=== PATIENT | female | born 1975 | race Caucasian/White ===

== ENCOUNTER 2022-12-24 17:31 | Emergency (ER) | payer BC, OTHER, SELFPAY ==
[2022-12-24] VITALS (23 sets, daily range): BP systolic 156–175; BP diastolic 97–122; PULSE 84–116; RESP 11–33; TEMP 36.4; O2SAT 95–100; BMI 32.9
--- NOTE | 2022-12-24 17:36 | ECG_ITS ---
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
--- NOTE | 2022-12-24 17:50 | ED_ITS ---
HPI - Nausea/Vomiting/Diarrhea General Chief complaint: Nausea/Vomiting/Diarrhea Stated complaint: NAUSEA/VOMITING Time Seen by Provider: 12/24/22 17:46 Mode of arrival: ambulance Limitations: no limitations History of Present Illness HPI Narrative: 47 year old female presents to the ED for N/V, mid upper abd pain. Onset was 1-2 days ago. Denies fever, chills, diarrhea, urinary sx. Denies CP, SOB, cough, sore throat. Denies injury. Rates her pain 9/10 at this time. She does use marijuana on occasion; last use was 2 days ago. MD elicited complaint: Reports nausea, vomiting and abdominal pain Related Data Home Medications Medication Instructions Recorded Confirmed bupropion HCl 300 mg 24 hr tablet, 300 mg PO DAILY 12/24/22 12/24/22 extended release nitrofurantoin 12/24/22 monohydrate/macrocrystals 100 mg capsule Previous Rx's Medication Instructions Recorded ondansetron 4 mg disintegrating 4 mg translingual Q8H PRN nausea 12/24/22 tablet and vomiting 4 days #12 tabs promethazine 25 mg tablet 25 mg PO TID PRN nausea and 12/24/22 vomiting #9 tabs Allergies Allergy/AdvReac Type Severity Reaction Status Date / Time metronidazole [From Flagyl] AdvReac Intermediate Verified 12/24/22 17:44 sulfamethoxazole AdvReac Intermediate Verified 12/24/22 17:44 [From Bactrim] trimethoprim [From Bactrim] AdvReac Intermediate Verified 12/24/22 17:44 Review of Systems ROS Constitutional Denies: fever or chills Ears, nose, mouth, and throat Denies: throat pain Cardiovascular Denies: chest pain Respiratory Denies: shortness of breath or cough Gastrointestinal Reports: abdominal pain, nausea and vomiting; Denies: diarrhea or constipation Genitourinary Denies: painful urination, urinary frequency or urinary urgency Musculoskeletal Denies: back pain or neck pain Integumentary/Breast Denies: rash Neurological Denies: headache PFSH PFSH Social History Smoking status: Never smoker Exam Constitutional Vital Signs, click to edit/add: Last Vital Signs Temp 97.5 F L 12/24/22 17:35 Pulse 105 H 12/24/22 20:40 Resp 21 12/24/22 20:40 BP 156/97 H 12/24/22 20:30 Pulse Ox 98 12/24/22 19:50 Common normals: oriented x3 General appearance: cooperative, ill appearing and diaphoretic HENMT Common normals: normocephalic Nose: external nose normal Mouth: lip normal and moist mucous membranes abnormal (Dry) Eye Common normals: conjunctivae normal and no scleral icterus Neck & C-Spine Common normals: supple Chest Chest: symmetrical chest wall rise Respiratory Common normals: normal respiratory effort Effort & inspection: able to speak in complete sentences, symmetric chest movement and tachypneic Cardio Common normals: regular rhythm Rate: tachycardic GI Common normals: soft to palpation Inspection: normal to inspection Palpation: tender Details: epigastric; no guarding and not rigid Back & Pelvis Common normals: thoracic and lumbar spine normal to inspection Neuro Common normals: oriented x3 Sensorium/orientation: awake and alert Course Vital Signs Vital signs: Vital Signs Blood Pressure 162/108 H 12/24/22 17:33 Temperature 97.5 F L 12/24/22 17:35 Pulse Rate 105 H 12/24/22 20:40 Respiratory Rate 21 12/24/22 20:40 Blood Pressure 156/97 H 12/24/22 20:30 Pulse Oximetry 98 12/24/22 19:50 MDM - Nausea/Vomiting/Diarrhea MDM Narrative Medical decision making narrative: WBC count was 11.1. Additional laboratory studies were unremarkable. CT scan was negative for acute findings; see below for additional findings. She did see her pcp earlier today. She was diagnosed with a UTI at her pcp office. Per the patient she was given a prescription for Macrobid which she was not able to pickup from the pharmacy. She was given medication here with improvement. Follow up with pcp for a recheck, further evaluation and treatment. Differential Diagnosis Differential diagnosis: Likely gastroenteritis and dehydration Medical Records Attestation: I reviewed the patient's medical records. Lab Data Attestation: I reviewed the patient's lab results. Labs: Lab Results 12/24/22 12/24/22 Range/Units 18:04 19:20 WBC 11.1 H (4.0-11.0) 10^3/uL RBC 4.57 (4.20-5.40) 10^6/uL Hgb 13.9 (12.0-16.0) g/dL Hct 40.4 (36.0-48.0) % MCV 88.4 (81.0-99.0) fL MCH 30.4 (26.7-34.0) pg MCHC 34.4 (29.9-35.2) g/dL RDW 12.4 (11.0-15.0) % Plt Count 447 (150-450) 10^3/uL MPV 9.0 L (9.5-13.5) fL Neut % (Auto) 84.4 H (43.0-75.0) % Lymph % (Auto) 10.9 L (20.5-60.0) % [place] % (Auto) 3.8 (1.7-12.0) % Eos % (Auto) 0.2 L (0.9-7.0) % Baso % (Auto) 0.4 (0.2-2.0) % Neut # (Auto) 9.4 H (1.4-6.5) 10^3/uL Lymph # (Auto) 1.2 (1.2-3.8) 10^3/uL [place] # (Auto) 0.4 (0.3-0.8) 10^3/uL Eos # (Auto) 0.0 (0.0-0.7) 10^3/uL Baso # (Auto) 0.0 (0.0-0.1) 10^3/uL Abs Immat Gran (auto) 0.03 (0.00-0.03) 10^3/uL Imm/Tot Granulo (auto) 0.3 (0.0-0.5) % Sodium 136 (136-145) mmol/L Potassium 3.5 (3.5-5.1) mmol/L Chloride 99 (98-107) mmol/L Carbon Dioxide 20.0 L (21.0-32.0) mmol/L Anion Gap 20.5 BUN 12.0 (7.0-18.0) mg/dL Creatinine 0.98 (0.55-1.02) mg/dL Est GFR ( Amer) >60 (>=60) Est GFR (Non-Af Amer) >60 (>=60) BUN/Creatinine Ratio 12.2 Glucose 109 H (74-106) mg/dL Calcium 9.2 (8.5-10.1) mg/dL Total Bilirubin 0.7 (0.2-1.0) mg/dL AST 19 (15-37) U/L ALT 35 (14-59) U/L Alkaline Phosphatase 44 L (46-116) U/L Total Protein 7.1 (6.4-8.2) g/dL Albumin 4.1 (3.4-5.0) g/dL Globulin 3.0 g/dL Albumin/Globulin Ratio 1.4 Lipase 41.0 (16.0-77.0) U/L Urine Color Lt. yellow (YELLOW) Urine Clarity Clear (CLEAR) Urine pH 7.5 (5.0-9.0) Ur Specific [place] 1.015 (1.005-1.025) Urine Protein Negative (NEG/TRACE) mg/dL Urine Glucose (UA) Negative (NEGATIVE) mg/dL Urine Ketones >=80 A (NEGATIVE) mg/dL Urine Occult Blood Trace-i (NEGATIVE) Urine Nitrite Negative (NEGATIVE) Urine Bilirubin Negative (NEGATIVE) Urine Urobilinogen 0.2 (0.2-1.0) EU/dL Ur Leukocyte Esterase Negative (NEGATIVE) Urine RBC 0-2 (0-2) #/HPF Urine WBC 0-2 A (NONE SEEN) #/HPF Ur Squamous Epith Cells Few A (NONE/RARE) #/LPF Urine Crystals None seen (None Seen) #/HPF Urine Bacteria Small A (NONE SEEN) #/HPF Urine Casts None seen (NONE SEEN) #/LPF Urine Mucus None seen (NONE SEEN) Ur Culture Indicated? Yes Urine HCG, Qual Negative (NEGATIVE) Imaging Data CT scan - abdomen: Attestation: I have reviewed the pertinent imaging results. Radiologist's impression: Procedure: CT abdomen pelvis w con EXAM: CT abdomen pelvis w con TECHNIQUE: Axial CT images were obtained of the abdomen and pelvis with intravenous contrast. Sagittal and coronal reformatted images were also obtained. Dose reduction techniques were achieved by using automated exposure control and/or adjustment of mA and/or kV according to patient size and/or use of iterative reconstruction technique. HISTORY: upper abd pain COMPARISON: None. FINDINGS: Lower chest: The lower lungs are clear. Liver: Focal steatosis adjacent to the left lobe hepatic fissure. Gallbladder: Tiny calcified stones of the gallbladder. No biliary dilatation. Pancreas: The pancreas is homogeneous without evidence for mass lesion or inflammation. Spleen: The spleen is unremarkable without evidence for mass lesion. Adrenal glands: The adrenal glands are unremarkable Kidneys and bladder: Tiny cyst of the anterior cortex right kidney. 2 mm nonobstructing stone lower pole left kidney. The ureters demonstrate normal caliber. The urinary bladder is unremarkable. GI Tract: Stomach is unremarkable. Visualized small bowel is unremarkable without evidence for obstruction or active inflammation. The appendix is unremarkable.The visualized portion of the large bowel is unremarkable. Reproductive: Unremarkable Lymph nodes: No retroperitoneal or abdominal lymphadenopathy. Vascular: The aorta is not dilated. Mesenteric vessels are patent. Peritoneum: No free intraperitoneal air or fluid. No acute inflammation. Abdominal wall: Unremarkable without acute abnormality. CT/CT abdomen pelvis w con IMPRESSION: No acute abdominal pathology. No acute inflammatory process. No obstructing urinary tract stone. No evidence for bowel obstruction. Electronically authenticated by: ROS HARP Date: 12/24/2022 19:31 Discharge Plan Discharge Chief Complaint: Nausea/Vomiting/Diarrhea Clinical Impression: Nausea & vomiting Patient Disposition: Home, Self-Care Condition: Good Mode of Transportation: Private Vehicle Prescriptions / Home Meds: New ondansetron 4 mg tablet,disintegrating 4 mg translingual Q8H PRN (Reason: nausea and vomiting) 4 Days Qty: 12 0RF promethazine 25 mg tablet 25 mg PO TID PRN (Reason: nausea and vomiting) Qty: 9 0RF No Action bupropion HCl 300 mg tablet extended release 24 hr 300 mg PO DAILY nitrofurantoin monohyd/m-cryst 100 mg capsule Instructions: Urinary Tract Infection in Women (ED), Acute Nausea and Vomiting (DC), Acute Abdominal Pain (ED) Stand Alone Forms: Portal Instructions Referrals: TIFFANY RIVERA [Primary Care Provider] - 1 week
--- NOTE | 2022-12-24 17:53 | CT_ITS ---
The [address] [address] Patient Name: June VERA MRN: [id number] date: 1975 Sex: F Assigned Patient Location: ED.MAIN Current Patient Location: Accession/Order Number: [id number] Exam Date: 12/24/2022 18:38 Report Date: 12/24/2022 19:31 At the request of: MERISSA HALE Procedure: CT abdomen pelvis w con EXAM: CT abdomen pelvis w con TECHNIQUE: Axial CT images were obtained of the abdomen and pelvis with intravenous contrast. Sagittal and coronal reformatted images were also obtained. Dose reduction techniques were achieved by using automated exposure control and/or adjustment of mA and/or kV according to patient size and/or use of iterative reconstruction technique. HISTORY: upper abd pain COMPARISON: None. FINDINGS: Lower chest: The lower lungs are clear. Liver: Focal steatosis adjacent to the left lobe hepatic fissure. Gallbladder: Tiny calcified stones of the gallbladder. No biliary dilatation. Pancreas: The pancreas is homogeneous without evidence for mass lesion or inflammation. Spleen: The spleen is unremarkable without evidence for mass lesion. Adrenal glands: The adrenal glands are unremarkable Kidneys and bladder: Tiny cyst of the anterior cortex right kidney. 2 mm nonobstructing stone lower pole left kidney. The ureters demonstrate normal caliber. The urinary bladder is unremarkable. GI Tract: Stomach is unremarkable. Visualized small bowel is unremarkable without evidence for obstruction or active inflammation. The appendix is unremarkable.The visualized portion of the large bowel is unremarkable. Reproductive: Unremarkable Lymph nodes: No retroperitoneal or abdominal lymphadenopathy. Vascular: The aorta is not dilated. Mesenteric vessels are patent. Peritoneum: No free intraperitoneal air or fluid. No acute inflammation. Abdominal wall: Unremarkable without acute abnormality. CT/CT abdomen pelvis w con IMPRESSION: No acute abdominal pathology. No acute inflammatory process. No obstructing urinary tract stone. No evidence for bowel obstruction. Electronically authenticated by: ROS HARP Date: 12/24/2022 19:31
[2022-12-24] MEDS: 0.9 % SODIUM CHLORIDE 1,000 ML 999 ML IV (18:04)
[2022-12-24] MEDS: PANTOPRAZOLE SODIUM 40 MG VIAL IV (18:04)
[2022-12-24] MEDS: ONDANSETRON PF 4 MG/2 ML VIAL IV (18:04)
[2022-12-24 18:22] LABS: Basophils Percent Auto 0.4 % (0.2-2.0); Eosinophils Percent Auto 0.2 % (0.9-7.0); Hematocrit 40.4 % (36.0-48.0); Hemoglobin 13.9 g/dL (12.0-16.0); Immature Granulocytes Abs Auto 0.03 10^3/uL (0.00-0.03); Immature Granulocytes Pct Auto 0.3 % (0.0-0.5); Lymphocytes Absolute Auto 1.2 10^3/uL (1.2-3.8); Lymphocytes Percent Auto 10.9 % (20.5-60.0); Mean Corpuscular HGB Conc 34.4 g/dL (29.9-35.2); Mean Corpuscular Hemoglobin 30.4 pg (26.7-34.0); Mean Corpuscular Volume 88.4 fL (81.0-99.0); Monocytes Absolute Auto 0.4 10^3/uL (0.3-0.8); Monocytes Percent Auto 3.8 % (1.7-12.0); Neutrophils Absolute Auto 9.4 10^3/uL (1.4-6.5); Neutrophils Percent Auto 84.4 % (43.0-75.0); Platelet Count 447 10^3/uL (150-450); Red Blood Count 4.57 10^6/uL (4.20-5.40); Red Cell Distribution Width 12.4 % (11.0-15.0); White Blood Count 11.1 10^3/uL (4.0-11.0)
[2022-12-24 18:28] LABS: Alanine Aminotransferase 35 U/L (14-59); Albumin Globulin Ratio 1.4; Albumin Level 4.1 g/dL (3.4-5.0); Alkaline Phosphatase 44 U/L (46-116); Anion Gap 20.5; Aspartate Amino Transferase 19 U/L (15-37); BUN Creatinine Ratio 12.2; Bilirubin Total 0.7 mg/dL (0.2-1.0); Calcium 9.2 mg/dL (8.5-10.1); Chloride 99 mmol/L (98-107); Estimated GFR (African America >60 (>=60); Estimated GFR (Non-African Ame >60 (>=60); Glucose 109 mg/dL (74-106); Potassium 3.5 mmol/L (3.5-5.1); Sodium 136 mmol/L (136-145); Total Protein 7.1 g/dL (6.4-8.2)
[2022-12-24] MEDS: PROMETHAZINE HCL 25 MG/ML VIAL 12.5 MG IV (19:18)
[2022-12-24] MEDS: LORAZEPAM 2 MG/ML 1 ML VIAL 1 MG IV (19:19)
[2022-12-24] MEDS: 0.9 % SODIUM CHLORIDE 1,000 ML 1000 ML IV (20:15)
[2022-12-24 21:04] LABS: Bilirubin Urine NEGATIVE (NEGATIVE); Blood Urine TRACE-I (NEGATIVE); Clarity Urine CLEAR (CLEAR); Color Urine LT. YELLOW (YELLOW); Glucose Urine UA NEGATIVE (NEGATIVE); Ketones Urine >=80 mg/dL (NEGATIVE); Leukocyte Esterase Urine NEGATIVE (NEGATIVE); Nitrite Urine NEGATIVE (NEGATIVE); Protein Urine NEGATIVE (NEG/TRACE); Specific Gravity Urine 1.015 (1.005-1.025); Urobilinogen Urine 0.2 EU/dL (0.2-1.0); pH Urine 7.5 (5.0-9.0)
[2022-12-24 21:11] LABS: Urine Microscopic Indicated YES
[2022-12-24 21:13] LABS: HCG Qualitative Urine* NEGATIVE (NEGATIVE)
[2022-12-24 21:15] LABS: Bacteria Urine SMALL #/HPF (NONE SEEN); Mucus Urine NONE SEEN (NONE SEEN); RBC Urine 0-2 #/HPF (0-2); WBC Urine 0-2 #/HPF (NONE SEEN)
[2022-12-24 21:16] LABS: Cast Seen? NONE SEEN #/LPF (NONE SEEN); Crystals Seen? None Seen #/HPF (None Seen); Squamous Epithelial Cell Urine FEW #/LPF (NONE/RARE); Urine Culture Indicated YES
[2022-12-24] MEDS: HALOPERIDOL LACTATE 5 MG/ML VIAL IM (21:32)
[2022-12-24] MEDS: NITROFURANTOIN MONOHYD/MAC-CRST 100 MG CAPSULE PO (22:14)
--- NOTE | 2022-12-28 07:34 | PC.NURSE ---
12/28/22 0734 pt urine c+s nno at this time. S Joanna JIMENEZ
== END 2022-12-24 22:30 | disposition home or self-care (01) ==
PROVIDERS: Nurse Practitioner Family; Emergency Provider Emergency Medicine; PCP Family Medicine
DX: R11.2 Nausea with vomiting, unspecified (principal); Z87.440 Personal history of urinary (tract) infections; Z79.899 Other long term (current) drug therapy; F12.90 Cannabis use, unspecified, uncomplicated
CPT/HCPCS: 36415; 74177; 80053; 81001; 83690; 84703; 85025; 87086; 87150; 87186; 93005; 96361; 96372; 96374; 96375; 99285; Q9967

== ENCOUNTER 2025-03-02 08:00 | Emergency (ER) | payer BC, OTHER, SELFPAY ==
[2025-03-02 08:08] VITALS: BP 159/86; PULSE 83; TEMP 36.6; O2SAT 100; BMI 28.3
--- NOTE | 2025-03-02 08:21 | ECG_ITS ---
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 Measurements Intervals [place] Rate: 65 P: 54 AK: 144 QRS: 83 QRSD: 90 T: 62 QT: 432 QTc: 443 Interpretive Statements 1100 Sinus rhythm 1102 Sinus arrhythmia 9110 normal ECG Compared to ECG 12/24/2022 17:36:44 Sinus tachycardia no longer present Electronically Signed On 03-02-2025 17:22:41 EST by RAIZA MAYBERRY M.D.
[2025-03-02 08:29] LABS: Hematocrit 40.1 % (36.0-48.0); Hemoglobin 13.4 g/dL (12.0-16.0); Immature Granulocytes Abs Auto 0.06 10^3/uL (0.00-0.03); Immature Granulocytes Pct Auto 0.4 % (0.0-0.5); Lymphocytes Absolute Auto 1.4 10^3/uL (1.2-3.8); Mean Corpuscular HGB Conc 33.4 g/dL (29.9-35.2); Mean Corpuscular Hemoglobin 30.0 pg (26.7-34.0); Mean Corpuscular Volume 89.7 fL (81.0-99.0); Platelet Count 389 10^3/uL (150-450); Red Blood Count 4.47 10^6/uL (4.20-5.40); White Blood Count 14.6 10^3/uL (4.0-11.0)
[2025-03-02 08:31] LABS: Anion Gap 17.8; Blood Urea Nitrogen 10.0 mg/dL (7.0-18.0); Calcium 8.9 mg/dL (8.5-10.1); Carbon Dioxide 22.8 mmol/L (21.0-32.0); Chloride 104 mmol/L (98-107); Estimated GFR (African America >60 (>=60 mL/min/1.73m^2); Estimated GFR (Non-African Ame >60 (>=60 mL/min/1.73m^2); Glucose 134 mg/dL (74-106); Potassium 3.6 mmol/L (3.5-5.1); Sodium 141 mmol/L (136-145)
[2025-03-02] MEDS: 0.9 % SODIUM CHLORIDE 1,000 ML 1000 ML IV (08:31)
--- NOTE | 2025-03-02 08:32 | ED.GENADUL1 ---
HPI HPI - General Adult General Chief complaint: Abdominal Pain Stated complaint: NAUSEA/VOMITING Time Seen by Provider: 03/02/25 08:03 Source: patient Mode of arrival: walk-in Limitations: no limitations History of Present Illness HPI narrative: 49-year-old female presented to the emergency department with nausea and vomiting. It began last night after taking her first Wegovy shot in a few months. No diarrhea or hematemesis. Family member reports that she looks pale. She has not had a fever. In the past when she had received the Wegovy shot she had some nausea but not to this extent. Related Data Home Medications ?Medication ?Instructions ?Recorded ?Confirmed bupropion HCl 300 mg 24 hr tablet, 300 mg PO DAILY 12/24/22 03/02/25 extended release nitrofurantoin 12/24/22 monohydrate/macrocrystals 100 mg capsule hydroxyzine HCl 25 mg tablet mg 03/02/25 semaglutide (weight loss) 1.7 mg subcut 03/02/25 mg/0.75 mL subcutaneous pen injector (Wegovy) Previous Rx's ?Medication ?Instructions ?Recorded ondansetron 4 mg disintegrating 4 mg translingual Q8H PRN nausea 12/24/22 tablet and vomiting 4 days #12 tabs promethazine 25 mg tablet 25 mg PO TID PRN nausea and 12/24/22 vomiting #9 tabs ondansetron 4 mg disintegrating 4 mg PO Q6H PRN nausea and 03/02/25 tablet vomiting #20 tabs Allergies Allergy/AdvReac Type Severity Reaction Status Date / Time metronidazole (From Flagyl) AdvReac Intermediate Verified 12/24/22 17:44 sulfamethoxazole (From AdvReac Intermediate Verified 12/24/22 17:44 Bactrim) trimethoprim (From Bactrim) AdvReac Intermediate Verified 12/24/22 17:44 Opioid HPI Opioid Management Most Recent Opioid Data: Last Pain Scale 9 Today, 10:56 Last MAR Pain Assessment Today, 10:56 Review of Systems ROS Narrative A ten point review of systems is negative except as noted above. PFSH PFSH Social History Smoking status: Never smoker Little interest or pleasure in doing things: not at all Feeling down, depressed, or hopeless: not at all Exam Narrative Exam Narrative: Nurses note and vital signs reviewed General:The patient appears well and in no apparent distress.Patient is resting comfortably on cart. Skin:Warm, dry, pallor noted.There is no rash noted. Head:Normocephalic, atraumatic Eye: Normal conjunctiva, no drainage Ears, Nose, Mouth, and Throat: oral mucosa is moist. Nares patent. Cardiovascular:Regular Rate and Rhythm Respiratory:Patient is in no distress, no accessory muscle use, lungs are clear to auscultation, no wheezing, rales or rhonchi Back:non-tender GI: Soft and nontender Musculoskeletal: The patient has no evidence of calf tenderness, no pitting edema, symmetrical pulses noted bilaterally Neurological:A&O, normal speech Psychiatric:Cooperative Constitutional Vital Signs, click to edit/add: Last Vital Signs Temp 97.9 F 03/02/25 08:08 Pulse 83 03/02/25 08:08 Resp 18 03/02/25 08:08 BP 159/86 H 03/02/25 08:08 Pulse Ox 100 03/02/25 08:08 Course Vital Signs Vital signs: Vital Signs Temperature 97.9 F 03/02/25 08:08 Pulse Rate 83 03/02/25 08:08 Respiratory Rate 18 03/02/25 08:08 Blood Pressure 159/86 H 03/02/25 08:08 Pulse Oximetry 100 03/02/25 08:08 Temperature 97.9 F 03/02/25 08:08 Pulse Rate 83 03/02/25 08:08 Respiratory Rate 18 03/02/25 08:08 Blood Pressure 159/86 H 03/02/25 08:08 Pulse Oximetry 100 03/02/25 08:08 Medical Decision Making [facility] Narrative Medical decision making narrative: The patient appears to have her symptoms secondary to Wegovy injection. She is improved now after being given IV fluids and morphine and Zofran. She is discharged home with a prescription for Zofran and will follow-up with her doctor. CT of her abdomen showed no acute findings. Treatment diagnosis and follow-up were discussed with the patient. Differential Diagnosis Differential Diagnosis: Medication side effect, bowel obstruction, dehydration Lab Data Lab results reviewed: Yes I reviewed the patient's lab results Labs: Lab Results 03/02/25 Range/Units 08:13 WBC 14.6 H (4.0-11.0) 10^3/uL RBC 4.47 (4.20-5.40) 10^6/uL Hgb 13.4 (12.0-16.0) g/dL Hct 40.1 (36.0-48.0) % MCV 89.7 (81.0-99.0) fL MCH 30.0 (26.7-34.0) pg MCHC 33.4 (29.9-35.2) g/dL RDW 13.1 (11.0-15.0) % Plt Count 389 (150-450) 10^3/uL MPV 8.9 L (9.5-13.5) fL Neut % (Auto) 85.2 H (43.0-75.0) % Lymph % (Auto) 9.2 L (20.5-60.0) % [place] % (Auto) 4.7 (1.7-12.0) % Eos % (Auto) 0.2 L (0.9-7.0) % Baso % (Auto) 0.3 (0.2-2.0) % Neut # (Auto) 12.5 H (1.4-6.5) 10^3/uL Lymph # (Auto) 1.4 (1.2-3.8) 10^3/uL [place] # (Auto) 0.7 (0.3-0.8) 10^3/uL Eos # (Auto) 0.0 (0.0-0.7) 10^3/uL Baso # (Auto) 0.1 (0.0-0.1) 10^3/uL Abs Immat Gran (auto) 0.06 H (0.00-0.03) 10^3/uL Imm/Tot Granulo (auto) 0.4 (0.0-0.5) % Sodium 141 (136-145) mmol/L Potassium 3.6 (3.5-5.1) mmol/L Chloride 104 (98-107) mmol/L Carbon Dioxide 22.8 (21.0-32.0) mmol/L Anion Gap 17.8 BUN 10.0 (7.0-18.0) mg/dL Creatinine 0.78 (0.55-1.02) mg/dL Est GFR ( Amer) >60 (>=60 mL/min/1.73m^2) Est GFR (Non-Af Amer) >60 (>=60 mL/min/1.73m^2) BUN/Creatinine Ratio 12.8 Glucose 134 H (74-106) mg/dL Calcium 8.9 (8.5-10.1) mg/dL Total Bilirubin 0.3 (0.2-1.0) mg/dL Direct Bilirubin 0.1 (0.0-0.2) mg/dL AST 25 (15-37) U/L ALT 30 (14-59) U/L Alkaline Phosphatase 53 (46-116) U/L Total Protein 6.7 (6.4-8.2) g/dL Albumin 3.7 (3.4-5.0) g/dL Globulin 3.0 g/dL Albumin/Globulin Ratio 1.2 Amylase 70 (25-115) U/L Lipase 44.0 (16.0-77.0) U/L Imaging Data CT scan - abdomen: Radiologist's impression: ITS Impressions Abdomen/Pelvis CT 03/02/25 10:52 IMPRESSION: CHOLELITHIASIS. DIVERTICULOSIS. POTENTIAL UTERINE FIBROID. NO BOWEL OR URINARY TRACT OBSTRUCTION. NO ACUTE FINDINGS. Impression dictated by: Rosy Mclaughlin M.D. 03/02/2025 11:51 AM Dictation Location: [employer] Electronically authenticated by: [id number] Y Date: 03/02/2025 11:51 ECG Data Attestation: I personally reviewed and interpreted this ECG as follows: (EKG on my interpretation shows sinus rhythm with rate of 65 and no acute change. Sinus arrhythmia present.) Discharge Plan Discharge Chief Complaint: Abdominal Pain Clinical Impression: Nausea & vomiting Patient Disposition: Home, Self-Care Time of Disposition Decision: 13:45 Condition: Good Mode of Transportation: Private Vehicle Prescriptions / Home Meds: New ondansetron 4 mg tablet,disintegrating 4 mg PO Q6H PRN (Reason: nausea and vomiting) Qty: 20 0RF No Action bupropion HCl 300 mg tablet extended release 24 hr 300 mg PO DAILY nitrofurantoin monohyd/m-cryst 100 mg capsule ondansetron 4 mg tablet,disintegrating 4 mg translingual Q8H PRN (Reason: nausea and vomiting) 4 Days Qty: 12 0RF promethazine 25 mg tablet 25 mg PO TID PRN (Reason: nausea and vomiting) Qty: 9 0RF hydroxyzine HCl 25 mg tablet Wegovy 1.7 mg/0.75 mL pen injector SUBCUT Print Language: Luxembourger Instructions: Acute Nausea and Vomiting (ED) Referrals: TIFFANY RIVERA [Primary Care Provider, Family Practice] - 1 week
--- NOTE | 2025-03-02 10:52 | CT_ITS ---
The [address] [address] Patient Name: JENNIFER VERA MRN: [id number] date: 1975 Sex: F Assigned Patient Location: ER Current Patient Location: ER Accession/Order Number: [id number] Exam Date: 03/02/2025 11:22 Report Date: 03/02/2025 11:51 At the request of: JOEL SHANKAR MD Procedure: CT abdomen pelvis w con CT ABDOMEN AND PELVIS WITH CONTRAST COMPARISON: 12/25/2022 CLINICAL DATA: Abdominal pain, cramping, nausea and vomiting. Spiral images were obtained through the abdomen and pelvis following 100 mL of Omnipaque 300. This CT exam was performed using one or more following dose reduction techniques: Automated exposure control, adjustment of the mA and/or kV according to patient size, or use of iterative reconstruction technique. Limited cuts through the lung bases show no contributory findings. There is cholelithiasis, without pericholecystic inflammation. No intrahepatic masses are identified. The spleen, pancreas and adrenal glands show no acute findings. There are symmetric renal nephrograms, without hydronephrosis. The abdominal aorta is normal caliber. No enlarged lymph nodes or ascites are seen. The small bowel loops are not dilated. There is a small amount of right-sided colonic stool. The left colon is decompressed. There are some transverse and descending colonic diverticula. Minor endplate spurring is seen. Images through the pelvis show no appendiceal inflammation. The small bowel loops are normal caliber. The distal colon is decompressed. There are a couple additional colonic diverticula, without associated active inflammation. The uterus is slightly dextroverted. There is a hypodense nodular area within the myometrium on the left that might be fibroid change. Tubal ligation clips are visualized. No adnexal cysts are seen. No urinary bladder abnormalities are identified. There is no ascites. CT/CT abdomen pelvis w con IMPRESSION: CHOLELITHIASIS. DIVERTICULOSIS. POTENTIAL UTERINE FIBROID. NO BOWEL OR URINARY TRACT OBSTRUCTION. NO ACUTE FINDINGS. Impression dictated by: Rosy Mclaughlin M.D. 03/02/2025 11:51 AM Dictation Location: [facility] Electronically authenticated by: [id number] Y Date: 03/02/2025 11:51
[2025-03-02] MEDS: MORPHINE SULFATE 4 MG/ML VIAL IV ×2 (10:56→12:34)
[2025-03-02 11:17] LABS: Alanine Aminotransferase 30 U/L (14-59); Albumin Globulin Ratio 1.2; Albumin Level 3.7 g/dL (3.4-5.0); Alkaline Phosphatase 53 U/L (46-116); Amylase 70 U/L (25-115); Aspartate Amino Transferase 25 U/L (15-37); Globulin 3.0 g/dL; Lipase 44.0 U/L (16.0-77.0); Total Protein 6.7 g/dL (6.4-8.2)
== END 2025-03-02 13:57 | disposition home or self-care (01) ==
PROVIDERS: Emergency Provider Emergency Medicine; PCP Family Medicine
DX: R11.2 Nausea with vomiting, unspecified (principal); Z79.85 Long-term (current) use of injectable non-insulin antidiabetic drugs
CPT/HCPCS: 36415; 74177; 80048; 80076; 82150; 83690; 85025; 93005; 96361; 96374; 96375; 96376; 99284; J2270; J2405; Q9967

== ENCOUNTER 2025-03-04 01:32 | Emergency (ER) | payer BC, OTHER, SELFPAY ==
[2025-03-04 01:41] VITALS: BP 150/120; PULSE 94; TEMP 36.7; O2SAT 100; BMI 27.4
--- OUTSIDE RECORDS SUMMARY | 2025-03-04 01:53 | XMS_ITS | Clinical Summary ---
[id number] [address] [place] [address] Care Team Providers Care Hedis Analyst Name Role Phone Deisy Gomez MD Primary Care Provider [phone] Allergies Active AllergyReactionsCriticalityNoted DateCommentsCiprofloxacinGI Disturbance 01/20/2023 N/V MetronidazoleOther (See Comments)12/05/2020NitrofurantoinGI Disturbance 01/20/2023 N/V SulfamethoxazoleOther (See Comments)12/05/2020TrimethoprimOther (See Comments) 12/05/2020 Medications * This document contains information received from the source organization and may not represent a complete record from that organization. MedicationSigDispense QuantityRefillsLast FilledStart DateEnd DateStatus buPROPion XL (WELLBUTRIN XL) 300 mg 24 hr tablet Take 1 tablet (300 mg total) by mouth.11/10/2022ctive hydrOXYzine (ATARAX) 25 mg tablet Take 1 tablet (25 mg total) by mouth every 8 (eight) hours as needed.05/11/2023 Active olmesartan (BENICAR) 40 mg tablet Take 1 tablet (40 mg total) by mouth.05/11/2023ctive metoclopramide (REGLAN) 10 mg tablet Take 1 tablet (10 mg total) by mouth every 6 (six) hours. 30 tablet 06/09/2023ctive Social History Tobacco UseTypesPacks/DayYears UsedDateSmoking Tobacco: Never AssessedChildcare AnswerDate HyofcrpoJpeatizjoLvhppdy68/12/2019EmploymentAnswerDate Recorded CkvscezxrhPgvlxze30/12/2019Hunger ScreeningAnswerDate RecordedWithin the past 12 months we worried whether our food would run out before we got money to buy more.Never True06/14/2023Within the past 12 months the food we bought just didn't last and we didn't have money to get more.Never True06/14/2023urpose - LifeAnswerDate RecordedPurpose and direction in pnozDnfxust72/11/2021 CommentsUnknownSex and Gender InformationValueDate RecordedSex Assigned at Not on fileLegal CxnPfjaqi57/06/2015 11:47 AM EDTGender IdentityNot on file Sexual OrientationNot on file Last Filed Vital Signs Vital SignReadingTime TakenCommentsBlood Myqcwguk023/8206/14/2023 3:30 PM EDT Bgfna08007/25/2024 3:30 PM LHNXevglmwugwf77.7 ??C (98 ??F)06/14/2023 1:26 PM EDT Respiratory Igyx602306/14/2023 3:30 PM EDTOxygen Btlxxwbuyj01%06/14/2023 3:30 PM EDTInhaled Oxygen Concentration--Rcxvrb04.7 kg (136 lb)06/14/2023 1:26 PM EDT Htfbrc170.5 cm (5' 2.01 )06/14/2023 1:26 PM EDTBody Mass Index24.8706/14/2023 1:26 PM EDT Plan of Treatment Health MaintenanceDue DateLast DoneCommentsDepression Kemzagcgl46/01/1990Tobacco Dbezqurmv65/01/1990DTaP,Tdap and Td Vaccines (1 - Tdap)1996Pap Smear 1998Adult BMI Njosvfddd72/25/467866/OVID-19 Vaccine ( season), 02/07/2021, 08/02/2020, Additional history exists Influenza Puusnaj58/, 12/24/2020 Medical Devices Not on file Insurance Care Teams Team MemberRelationshipSpecialtyStart DateEnd Date Deisy Gomez MD [address] [place] [address] PCP - GeneralFamily Medicine06/08/23
--- OUTSIDE RECORDS SUMMARY | 2025-03-04 01:53 | XMS_ITS | Encounter Summary ---
Author Organization [facility] Address [address] [facility] [address] Care Team Providers Care Senior Data Scientist Name Role Phone Deisy Gomez MD Primary Care Provider [phone] Encounter Details DateTypeDepartmentCare Team (Latest Contact Info)Aszsqglkrui01/13/2025bstract [facility] [address] [place] [address] Deisy Gomez MD [address] [place], [place] [id number] Social History Tobacco UseTypesPacks/DayYears UsedDateSmoking Tobacco: FormerCigarettesQuit: 2007Smokeless Tobacco: NeverAlcohol UseStandard Drinks/WeekCommentsNot Currently 0 (1 standard drink = 0.6 oz pure alcohol)caffeine intake: 1 cup of coffee AUDIT-CAnswerDate RecordedQ1: How often do you have a drink containing alcohol? 2-3 times a week08/10/2022Q2: How many drinks containing alcohol do you have on a typical day when you are drinking?1 or Q3: How often do you have six or more drinks on one occasion?Never08/10/2022HQ-2AnswerDate Recorded Patient Health Questionnaire-2 Wolny232CommentsNoSex and Gender InformationValueDate RecordedSex Assigned at BirthNot on fileLegal SexFemale 06/03/2022 7:01 PM EDTGender IdentityNot on fileSexual OrientationNot on file documented as of this encounter Plan of Treatment DateTypeDepartmentCare Team (Latest Contact Info)Squcrxwggtv30/02/2026 8:00 AM ESTClinical Support [facility] [address] [facility] [address] [place] [address] Milly Morales, [facility] [address] [place] [address] 04/24/2025 1:00 PM ESTOffice Visit [facility] [address] [facility] [address] [place] [address] Claribel Thompson MD [address] [facility] [address] [place], [place] [id number] documented as of this encounter Visit Diagnoses Not on filedocumented in this encounter Additional Health Concerns AssessmentNoted TimePHQ-9 Depression Total Score: 1:58 PM EDT documented as of this encounter Care Teams Team MemberRelationshipSpecialtyStart DateEnd Date Deisy Gomez MD [address] [place] [address] PCP - GeneralFamily Medicine08/10/22documented as of this encounter
--- OUTSIDE RECORDS SUMMARY | 2025-03-04 01:53 | XMS_ITS | Encounter Summary ---
Author Organization [facility] Address [address] [place] [address] Care Team Providers Care Cryptological Technician Name Role Phone Deisy Gomez MD Primary Care Provider [phone] Encounter Details DateTypeDepartmentCare Team (Latest Contact Info)Tuvefwwskqh54/08/2025Telephone [facility] [address] [place] [address] Deisy Gomez MD [address] [place] [address] Social History Tobacco UseTypesPacks/DayYears UsedDateSmoking Tobacco: FormerCigarettesQuit: [...] on one occasion?Never08/10/2022HQ-2AnswerDate Recorded Patient Health Questionnaire-2 Nouii337CommentsNoSex and Gender InformationValueDate RecordedSex Assigned at BirthNot on fileLegal SexFemale 06/03/2022 7:01 PM EDTGender IdentityNot on fileSexual OrientationNot on file documented as of this encounter Miscellaneous Notes * Telephone Encounter - Deisy Santiago MA - 02/27/2025 4:26 PM EST Submitted to [facility]. And approved. Left a message on patients machine letting her know it was approved and to call her pharmacy to run it through * Telephone Encounter - Nina Sanderson - 02/27/2025 8:37 AM EST Pt called about this again. She wasn't it done today. * Telephone Encounter - Ragini Rodas - 02/26/2025 10:13 AM EST Patient has been waiting on [employer]- it was denied thru [employer]- this is her primary insurance. Her has [employer] insurance- when is her secondary insurance. She contacted on [facility] of [facility] and they said they would cover, but they would need a PA. Uses [facility] in [place]. Please advise pt. Thank you. documented in this encounter Plan of Treatment DateTypeDepartmentCare Team (Latest Contact Info)Ttamgrwwnfp97/02/2026 8:00 AM ESTClinical Support [facility] [place] [facility] [address] [facility] [address] [place] [address] Milly Morales, [facility] [address] [place] [address] 04/24/2025 1:00 PM ESTOffice Visit [facility] [place] [facility] [address] [facility] [address] [place] [address] Claribel Thompson MD [address] [facility] [address] [place], [place] [id number] documented as of this encounter Visit Diagnoses Not on filedocumented in this encounter Additional Health Concerns AssessmentNoted TimePHQ-9 Depression Total Score: 1:58 PM EDT documented as of this encounter Care Teams Team MemberRelationshipSpecialtyStart DateEnd Date Deisy Gomez MD [address] [place] [address] PCP - GeneralFamily Medicine08/10/22documented as of this encounter
--- OUTSIDE RECORDS SUMMARY | 2025-03-04 01:54 | XMS_ITS | Clinical Summary ---
Author Organization [facility] Healthcare Address [address] [place] [address] Care Team Providers Care Deflector Operator Name Role Phone Deisy Gomez MD Primary Care Provider [phone] Allergies Active AllergyReactionsCriticalityNoted DateCommentsCiprofloxacinGI intolerance 01/20/2023 N/V NitrofurantoinGI evrdiocqpdx33/01/2023 N/V CgufcapxeanbjEganz23/16/6236AcaduxsrsrwssrwcKaasi17/16/2021TrimethoprimOther 12/05/2020 Medications MedicationSigDispense QuantityRefillsLast FilledStart DateEnd DateStatus albuterol HFA 90 mcg/act inhaler Indications:COVID-19,Acute coughInhale 2 puffs every 4 (four) hours if needed (cough) 18 g 3Active omeprazole (PriLOSEC) [address] capsule Take 40 mg by mouth in the morning.06/14/2023ctive hydrOXYzine HCl (Atarax) 25 MG tablet Indications:Adjustment disorder with mixed anxiety and depressed moodTAKE 1 TABLET BY MOUTH EVERY 8 HOURS NEEDED FOR ANXIETY 270 tablet 4Active olmesartan (BENIcar) 40 MG tablet Indications:Primary hypertensionTAKE 1 TABLET BY MOUTH IN THE MORNING 90 tablet 5Active 1.530 1.5-30 MG-MCG tablet Indications:PCO (polycystic ovaries)TAKE 1 TABLET BY MOUTH IN THE MORNING 84 tablet 5Active fluticasone (Flonase) 50 MCG/ACT nasal spray Indications:Recurrent acute serous otitis media of both earsAdminister 1 spray into each nostril Daily 16 g 5Active Additional Information Patient taking differently:1 spray Each Nostril Daily,(No times of day reported) , Reported on 01/17/2025 Semaglutide-Weight Management (Wegovy) 1.7 MG/0.75ML solution auto-injector Indications:Obesity (BMI 30.0-34.9)Inject 1.7 mg under the skin 1 (one) time per week 9 mL 5Active buPROPion XL (Wellbutrin XL) 300 MG 24 hr tablet Indications:Anxiety disorder, unspecifiedTAKE 1 TABLET BY MOUTH IN THE MORNING DO NOT CRUSH, CHEW, OR SPLIT 90 tablet 5Active Active Problems ProblemNoted DateDiagnosed DateAdjustment disorder with mixed anxiety and depressed mood08/10/20226637Pzwea16/22/2023Obesity (BMI 30.0-34.9)08/10/2022Major depressive disorder, single episode, chjttvme88/16/2021Tonsillar mass05/24/2018 Ipkrmvn4208/22/2015PCO (posterior capsular opacification), uruafhqgj44/02/2016 Nqfrbvq8004/13/2015Other jufrsliu26/23/2016Primary ggauqiuwhodk26/23/2016 Assessment & Plan (12/04/2023 7:57 AM EDT): Controlled on benicar. Acute serous otitis media04/13/2015 Encounters DateTypeDepartmentCare QkpqMwlbhyvqqtf10/13/2025bstract [facility] [address] [place] [phone] Deisy Gomez MD 02/26/2025Telephone [facility] [address] [place] [phone] Deisy Gomez MD 02/07/2025Telephone [facility] [address] [place] [phone] Deisy Santiago MA 02/06/2025Telephone [facility] [address] [place] [phone] Deisy Gomez MD 02/06/2025Telephone [place] [address] [place] [phone] Deisy Gomez MD 01/22/2025Telephone [place] [address] [facility] [place] [phone] Deisy Santiago MA 01/17/2025 1:10 PM EDTOffice Visit [facility] [address] [place] [address], [place] [phone] Claribel Thompson MD Ear fullness, bilateral (Primary Dx); ETD (Eustachian tube dysfunction), mapqtosmo69/29/2025Orders Only [place] [address] [facility] [phone] Rebecca Martino NP Positive CALLIE (antinuclear antibody) (Primary Dx)01/17/2025amboo flowsheet [facility] Otolaryngolog [address] [place] [phone] Claribel Thompson MD 01/17/20258959Ghrzyy62/24/2025 3:00 PM EDTOffice Visit [place] [address] [facility] [place] [phone] Deisy Gomez MD Arthralgia of both hands (Primary Dx); Bilateral chronic serous otitis media01/12/2025 1:00 PM EDTAncillary Procedure [facility] [address] [facility] [address] [place] [phone] Arthralgia of both hands01/12/2025Results Follow-Up [address] [place] [phone] Deisy Gomez MD XR fingers 2+ views right, CALLIE, Rheumatoid factor, Additional followed-up results: 5Bamboo flowsheet [place] [address] [facility] [place] [phone] Deisy Gomez MD 01/12/20259285Rgavww24/10/2025Refill [facility] [address] [facility] [place] [address] Rebecca Martino NP Anxiety disorder, jvwdompikdk20/10/2025Telephone [facility] [address] [place] [address] Deisy Gomez MD 12/22/2024Refill [facility] [address] [facility] [place] [phone] Deisy Gomez MD Obesity (BMI 30.0-34.9)from Last 3 Months Immunizations ImmunizationAdministration DatesNext DueInfluenza, injectable, quadrivalent, preservative free01/02/2022,12/24/2020Moderna Bivalent Booster Vaccination 01/02/2022 Family History Medical HistoryRelationNameCommentsCOPDFatherCancerFatherDiabetesFatherHeart diseaseFatherHypertensionFatherMental illnessFatherMental illnessMotherRelation NameStatusCommentsDaughter 1AliveDaughter 2AliveFatherDeceasedMotherAliveSister DeceasedSonAlive Social History Tobacco UseTypesPacks/DayYears UsedDateSmoking Tobacco: FormerCigarettesQuit: 2007Smokeless Tobacco: Never Tobacco Cessation:Counseling Given: Not Answered Alcohol UseStandard Drinks/WeekCommentsNot Currently0 (1 standard drink = 0.6 oz pure alcohol)caffeine intake: 1 cup of coffeeAUDIT-CAnswerDate RecordedQ1: How often do you have a drink containing alcohol?2-3 times a week08/10/2022Q2: How many drinks containing alcohol do you have on a typical day when you are drinking?1 or Q3: How often do you have six or more drinks on one occasion?Never08/10/2022HQ-2AnswerDate RecordedPatient Health Questionnaire-2 Sokjj497CommentsNoSex and Gender InformationValueDate Recorded Sex Assigned at BirthNot on fileLegal IeaCnrqyg03/15/2023 7:01 PM EDTGender IdentityNot on fileSexual OrientationNot on file Last Filed Vital Signs Vital SignReadingTime TakenCommentsBlood Wectfvgs648/8501/17/2025 1:11 PM EDT Nbyvu596001/17/2025 1:11 PM CPUOakpbwvxcry17.3 ??C (99.2 ??F)01/12/2025 3:02 PM EDTRespiratory Lxpj974505/18/2022 11:55 AM ESTOxygen Geaquwbrss24%01/12/2025 3:02 PM EDTInhaled Oxygen Concentration--Bogivx72.6 kg (149 lb)01/17/2025 1:11 PM EDT Bvabip277.5 cm (5' 2 )01/17/2025 1:11 PM EDTBody Mass Index27.251 1:11 PM EDT Plan of Treatment DateTypeDepartmentCare Team (Latest Contact Info)Oxbnsppriik68/02/2026 8:00 AM ESTClinical Support [facility] [address] [facility] [address] [place] [phone] Milly Morales, [facility] [address] [place] [address] 04/24/2025 1:00 PM ESTOffice Visit [facility] [address] [facility] 130 [place] [phone] Claribel Thompson MD [address] [place] [facility] [address] [place], [place] [phone] Health MaintenanceDue DateLast DoneCommentsCT Vtwxulzwfylv84/01/1978Colonoscopy 1977FIT1977FOBT1977 9220Oekgtlhblbhsy79/01/1978HPV/Qzkevz7305/08/2024 05/08/2019COVID-19 Vaccine ( season)51, 02/07/2021, 08/02/2020, Additional history existsInfluenza Vaccine (#1)510/, 12/24/20205804Bwigawrmt31/18/825478/, 04/12/2023, 04/08/2022, Additional history existsColorectal Cancer Jkwfyilac55/12/2026FIT-DNA/02/2023 Cervical Cancer Iixkbuast89/25/2027Pap Smearneumococcal Vaccine: Pediatrics (0 to 5 Years) and At-Risk Patients (6 to 64 Years)Aged Out No longer eligible based on patient's age to complete this topic Procedures Procedure NamePriorityDate/TimeAssociated DiagnosisCommentsXR FINGERS 2+ VIEWS DQPQTHazkjem15/24/2025 3:49 PM EDT Arthralgia of both hands ANTINUCLEAR ANTIBODIES TITER AND AYCGEESTnjcthr93/24/2025 3:26 PM EDT SED RATE BY MODIFIED ULFLDYJZVCTfvbwlc05/24/2025 3:26 PM EDT Arthralgia of both hands URIC QOZJNuclznu98/24/2025 3:26 PM EDT Arthralgia of both hands RHEUMATOID NAQTCNHhyelzg80/24/2025 3:26 PM EDT Arthralgia of both hands CALLIE SCREEN W/DNTVTUEnzpuov01/24/2025 3:26 PM EDT Arthralgia of both hands BI MAMMOGRAM SCREENING TOMOSYNTHESIS UUCUPGLHNJhjruqq17/18/2025 4:14 PM EDT Screening mammogram for breast cancer THINPREP IMAGING PAP AND HPV DNA REFLEX HPV 16,98Vuegqns69/25/2024 3:03 PM EST Screening for cervical cancer LAB COLOGUARD?? COLON CANCER GHGYVVWhzarqh60/12/2023 5:09 PM EDT Screening for colon cancer Q - THINPREP(R) TIS AND HPV MRNA E6/E7 RFL HPV 16,18/31Lezixqy06/17/2020 from Last 3 Months or Most Recently Relevant to Health Maintenance Results * XR fingers 2+ views right (01/12/2025 3:49 PM EDT)Anatomical RegionLaterality ModalityUpper Extremities, FingersRightRadiographic ImagingSpecimen (Source) Anatomical Location / LateralityCollection Method / VolumeCollection Time Received Time01/12/2025 3:58 PM EDT Impressions 01/12/2025 4:01 PM EDT No acute osseous findings. Degenerative changes. ELECTRONICALLY SIGNED BY: Luis García MD Narrative 01/12/2025 4:01 PM EDT EXAMINATION/TECHNIQUE: XR FINGERS 2+ VIEWS RIGHT HISTORY: Deformity of the index finger. COMPARISON: None RESULT: No distinct acute fracture. No dislocation. Advanced degenerative changes of the second digit DIP joint with joint space narrowing, osteophytes, subchondral sclerosis. Milder degenerative changes elsewhere in the imaged hand. Procedure Note Luis García MD - 01/12/2025 EXAMINATION/TECHNIQUE: XR FINGERS 2+ VIEWS RIGHT HISTORY: Deformity of the index finger. COMPARISON: None RESULT: No distinct acute fracture. No dislocation. Advanced degenerative changesof the second digit DIP joint with joint space narrowing, osteophytes,subchondral sclerosis. Milder degenerative changes elsewhere in the imagedhand. IMPRESSION: No acute osseous findings. Degenerative changes. ELECTRONICALLY SIGNED BY: Luis García MD Authorizing ProviderResult TypeResult StatusJejocy Gomez MDNORMAN SPECIALTY H[facility] [place] XR PROCEDURES Final Result * (ABNORMAL) ANTINUCLEAR ANTIBODIES TITER AND PATTERN (01/12/2025 3:26 PM EDT) ComponentValueRef RangeTest MethodAnalysis TimePerformed AtPathologist SignatureANA TITER1:40(H)titerQUESTComment: A low level CALLIE titer may be present in pre-clinical autoimmune diseases and normal individuals. ?Reference Range <1:40 Negative ?1:40-1:80 ?Low Antibody Level >1:80 Elevated Antibody Level CALLIE PATTERNNuclear, Homogeneous(A)QUESTComment: Homogeneous pattern is associated with systemic lupus erythematosus (SLE), drug-induced lupus and juvenile idiopathic arthritis. AC-1: Homogeneous International Consensus on CALLIE Patterns (https://doi.org/10.1515/togq-3694-5491) Specimen (Source)Anatomical Location / LateralityCollection Method / Volume Collection TimeReceived Time01/12/2025 3:26 PM EDT1 3:28 PM EDT Narrative Resulting Agency Comment Performing Organization Information ?Site ID: QPT ?Name: [facility] ?Address: [address] [place] [address], [address] [place], [place] [phone] ?Director: Lucas Bean MD Authorizing ProviderResult TypeResult StatusDeisy HOU BLOOD ORDERABLESFinal ResultPerforming OrganizationAddressCity/State/ZIP CodePhone Number [facility]ST * Sedimentation rate, automated (01/12/2025 3:26 PM EDT)ComponentValueRef Range Test MethodAnalysis TimePerformed AtPathologist SignatureSED RATE BY MODIFIED WESTERGREN2< OR = 20 mm/hQUESTSpecimen (Source)Anatomical Location / LateralityCollection Method / VolumeCollection TimeReceived TimeBloodVenous blood specimen / Izioowp8301/12/2025 3:26 PM EDT1 3:28 PM EDT Narrative Resulting Agency Comment Performing Organization Information ?Site ID: QPT ?Name: [facility] ?Address: [address] [place] [address], [address] [place] [phone] ?Director: Lucas Bean MD Authorizing ProviderResult TypeResult StatusDeisy HOU BLOOD ORDERABLESFinal ResultPerforming OrganizationAddressty/State/ZIP CodePhone Number [facility] * Rheumatoid factor (01/12/2025 3:26 PM EDT)ComponentValueRef RangeTest Method Analysis TimePerformed AtPathologist SignatureRHEUMATOID FACTOR<10<14 IU/mL QUESTSpecimen (Source)Anatomical Location / LateralityCollection Method / VolumeCollection TimeReceived TimeBloodVenous blood specimen / Unknown 01/12/2025 3:26 PM EDT1 3:28 PM EDT Narrative Resulting Agency Comment Performing Organization Information ?Site ID: QPT ?Name: [facility] ?Address: [address] [place] [address], [address] [place] [address] ?Director: Lucas Bean MD Authorizing ProviderResult TypeResult StatusDeisy HOU BLOOD ORDERABLESFinal ResultPerforming OrganizationAddressCity/State/ZIP CodePhone Number [facility] * (ABNORMAL) CALLIE (01/12/2025 3:26 PM EDT)ComponentValueRef RangeTest Method Analysis TimePerformed AtPathologist SignatureANA SCREEN, IFAPOSITIVE(A) NEGATIVEQUESTComment: CALLIE IFA is a first line screen for detecting the presence of up to approximately 150 autoantibodies in various autoimmune diseases. A positive CALLIE IFA result is suggestive of autoimmune disease and reflexes to titer and pattern. Further laboratory testing may be considered if clinically indicated. For additional information, please refer to http://education.[employer]/faq/RFG220 (This link is being provided for informational/ educational purposes only.) ?? Specimen (Source)Anatomical Location / LateralityCollection Method / Volume Collection TimeReceived TimeBloodVenous blood specimen / Phkmxdy2401/12/2025 3:26 PM EDT1 3:28 PM EDT Narrative Resulting Agency Comment Performing Organization Information ?Site ID: QPT ?Name: [facility] ?Address: [address] [place] [address], [address] [place] [address] ?Director: Lucas Bean MD Authorizing ProviderResult TypeResult Lindsey HOU BLOOD ORDERABLESFinal ResultPerforming OrganizationAddressCity/State/ZIP CodePhone Number [facility]ST * Uric acid (01/12/2025 3:26 PM EDT)ComponentValueRef RangeTest MethodAnalysis TimePerformed AtPathologist SignatureURIC ACID3.22.5 - 7.0 mg/dLQUESTComment: Therapeutic target for gout patients: <6.0 mg/dL ?? Specimen (Source)Anatomical Location / LateralityCollection Method / Volume Collection TimeReceived TimeBloodVenous blood specimen / Iikwqsp6501/12/2025 3:26 PM EDT1 3:28 PM EDT Narrative Resulting Agency Comment Performing Organization Information ?Site ID: QPT ?Name: [facility] [employer] [facility] ?Address: [address] [place] [address], [address] [place] [phone] ?Director: Lucas Bean MD Authorizing ProviderResult TypeResult StatusJejocy Gomez MDLAB BLOOD ORDERABLESFinal ResultPerforming OrganizationAddressCity/State/ZIP CodePhone Number [facility] * Bilateral screening mammogram with tomosynthesis (06/06/2024 4:14 PM EDT) Anatomical RegionLateralityModalityBreastBilateralMammographySpecimen (Source) Anatomical Location / LateralityCollection Method / VolumeCollection Time Received Time06/08/2024 10:03 AM EDT Impressions 06/08/2024 10:12 AM EDT Impression: No specific evidence of malignancy seen in either breast. BIRADS 2 - Benign Findings DENSITY: The breasts are almost entirely fatty. FOLLOW-UP: Routine Screening Mammogram ELECTRONICALLY SIGNED BY: Dany Mora M.D. Narrative 06/08/2024 10:12 AM EDT Examination: BI MAMMOGRAM SCREENING TOMOSYNTHESIS BILATERAL Clinical History: screening Technique: Screening digital mammography study of both breasts was performed with 2-D and 3-D tomosynthesis imaging. Study was compared to the prior exam dated 04/12/2023. Findings: There is no evidence of interval dominant spiculated mass, grouped microcalcifications, or skin thickening which would be suggestive of malignancy. ?? A small benign-appearing asymmetric density is seen on the left anteriorly similar to the prior study. A few benign-appearing calcifications are seen bilaterally. Axillary lymph nodes are noted bilaterally which appear grossly unremarkable. Procedure Note Dany Mora MD - 06/08/2024 Examination: BI MAMMOGRAM SCREENING TOMOSYNTHESIS BILATERAL Clinical History: screening Technique: Screening digital mammography study of both breasts wasperformed with 2-D and 3-D tomosynthesis imaging. Study was compared tothe prior exam dated 04/12/2023. Findings: There is no evidence of interval dominant spiculated mass,grouped microcalcifications, or skin thickening which would be suggestiveof malignancy. A small benign-appearing asymmetric density is seen on the left anteriorly similar to the prior study. A few benign-appearing calcifications are seen bilaterally. Axillary lymph nodes are noted bilaterally which appeargrossly unremarkable. IMPRESSION: Impression: No specific evidence of malignancy seen in either breast. BIRADS 2 - Benign Findings DENSITY: The breasts are almost entirely fatty. FOLLOW-UP: Routine Screening Mammogram ELECTRONICALLY SIGNED BY: Dany Mora M.D. Authorizing ProviderResult TypeResult StatusJennirineo Gomez MDIMEryn BI PROCEDURES Final Result * THINPREP IMAGING PAP AND HPV DNA REFLEX HPV 16,18 (04/15/2023 3:03 PM EST) ComponentValueRef RangeTest MethodAnalysis TimePerformed AtPathologist SignatureCLINICAL INFORMATIONQUESTComment:None givenLMPQUESTComment:NONE GIVEN PREV. PAPQUESTComment:NONE GIVENPREV. BXQUESTComment:NONE GIVENSOURCEQUEST Comment:None givenSTATEMENT OF ADEQUACYQUESTComment: Satisfactory for evaluation. Endocervical/transformation zone component absent. INTERPRETATION/RESULTQUESTComment: Cytology Results: Negative for intraepithelial lesion or malignancy. Reactive cellular changes associated with repair COMMENTQUESTComment: This Pap test has been evaluated with computer assisted technology. CYTOTECHNOLOGISTQUESTComment: [facility], [place](ASCP) CT screening location: [facility], [address] [place] [address], [place] [address]. PATHOLOGISTQUESTComment: Farhana Velazquez M.D. Board Certified in Anatomic and Clinical Pathology (electronic signature) For questions regarding this report call Anatomic Pathology at [phone] (ALWAYS MESSAGE)QUESTComment: EXPLANATORY NOTE: The Pap is a screening test for cervical cancer. It is not a diagnostic test and is subject to false negative and false positive results. It is most reliable when a satisfactory sample, regularly obtained, is submitted with relevant clinical findings and history, and when the Pap result is evaluated along with historic and current clinical information. HPV DNA, HIGH RISK, CERVICALNot DetectedNOT DETECTEDQUESTComment: Not Detected High Risk HPV types (16,18,31,33,35,39,45,51,52, 56,58,59,66,68) were not detected. Other HPV types which cause anogenital lesions may be present. The significance of the other types of HPV in malignant processes has not been established. Methodology: Real Time PCR Specimen (Source)Anatomical Location / LateralityCollection Method / Volume Collection TimeReceived TimeSwabCervical swab / Zlfoxne7504/15/2023 3:03 PM EST 04/16/2023 2:57 AM EST Narrative Resulting Agency Comment Performing Organization Information ?Site ID: AMD ?Name: [facility] ?Address: [address] [place] [address] [address] [place], [place] ?Director: Clayton Aponte M.D.,PhD ?Site ID: [id number] ?Name: [facility] ?Address: [address] [place] [phone] ?Director: Lucas Bean MD Authorizing ProviderResult TypeResult StatusValeritanisha Shankar CNML CYTOLOGY ORDERABLESFinal ResultPerforming OrganizationAddressCity/State/ZIP CodePhone Number [facility] * Cologuard?? colon cancer screening (12/01/2022 5:09 PM EDT)ComponentValueRef RangeTest MethodAnalysis TimePerformed AtPathologist SignatureNONINV COLON CA DNA+OCC BLD SCRN STL-MYWYjahltioWavxrzxy21/18/2023 6:13 PM EDTEXDEQ (CLIA #:[id number])Comment: NEGATIVE TEST RESULT. A negative Cologuard result indicates a low likelihood that a colorectal cancer (CRC) or advanced adenoma (adenomatous polyps with more advanced pre-malignant features) ??is present. The chance that a person with a negative Cologuard test has a colorectal cancer is less than 1in 1500 (negative predictive value >99.9%) or has an advanced adenoma is less than 5.3% (negative predictive value 94.7%). These data are based on a prospective cross-sectional study of 10,000individuals at average risk for colorectal cancer who were screened with both Cologuard and colonoscopy. (William Mckinley, N Engl J Med 2014;370(14):7111-6965) The normal value (reference range) for this assay is negative. COLOGUARD RE-SCREENING RECOMMENDATION: Periodic colorectal cancer screening is an important part ofpreventive healthcare for asymptomatic individuals at average risk for colorectal cancer. ??Following a negative Cologuard result, the [place] [employer] Society and U.S. Multi-Society Task Force screening guidelines recommend a Cologuard re-screening interval of 3 years. References: [place] [employer] Guideline for Colorectal Cancer Screening: https://www.cancer.or g/cancer/fsavk-hsijvs-ywtige/wnefelhxi-kisaoocsj-ovyehsk/acs-recommendations.htm miguel; James PEDROZA, Mariely MCKOY, Cyril GaryK, Colorectal Cancer Screening: Recommendations for Physicians and Patients from the U.S. Multi-Society Task Force on Colorectal Cancer Screening , Am J Gastroenterology 2017; 112:2739-9321. TEST DESCRIPTION: Composite algorithmic analysis of stool DNA-biomarkers with hemoglobin immunoassay. ?? Quantitative values of individual biomarkers are not reportable and are not associated with individual biomarker result reference ranges. Cologuard is intended for colorectal cancer screening ofadults of either sex, 45 years or older, who are at average-risk for colorectal cancer (CRC). Cologuard has been approved for use by the U.S. FDA. The performance of Cologuard was established in a cross sectional study of average-risk adults aged 50-84. Cologuard performance in patients ages 45 to 49 years was estimated by sub-group analysis of near-age groups. Colonoscopies performed for a positive result may find as the most clinically significant lesion: colorectal cancer [4.0%], advanced adenoma (including sessile serrated polyps greater than or equal to 1cm diameter) [20%] or non- advanced adenoma [31%]; or no colorectal neoplasia [45%]. These estimates are derived from a prospective cross-sectional screening study of 10,000 individuals at average risk for colorectal cancer who were screened with both Cologuard and colonoscopy. (William Mckinley, N Engl J Med 2014;370(14):9863-5797.) Cologuard may produce a false negative or false positive result (no colorectal cancer or precancerous polyp present at colonoscopy follow up). A negative Cologuard test result does not guarantee the absence of CRC or advanced adenoma (pre-cancer). The current Cologuard screening interval is every 3 years. ([place] [employer] Society and U.S. Multi-Society Task Force). Cologuard performance data in a 10,000 patient pivotal study using colonoscopy as the reference method can be accessed at the following location: www.apprupt.[employer]/results. Additional description of the Cologuard test process, warnings and precautions can be found at www.cologuard.com. Specimen (Source)Anatomical Location / LateralityCollection Method / Volume Collection TimeReceived TimeStool specimen (specimen)12/01/2022 5:09 PM EDT 12/03/2022 7:06 PM EDT Narrative Authorizing ProviderResult TypeResult StatusSaaureliano Martino NPLAB MOLECULAR DIAGNOSTICS ORDERABLESFinal ResultPerforming OrganizationAddressCity/State/ZIP CodePhone Number .[facility] (CLIA #:[id number]) [address] [address], [place] [phone] [employer] (CLIA #:[id number]) [address] [address] * Q - THINPREP(R) TIS AND HPV MRNA E6/E7 RFL HPV 16,18/45 (05/08/2019)Component ValueRef RangeTest MethodAnalysis TimePerformed AtPathologist Signature CLINICAL INFORMATION:None givenNOMS LEGACY EXTERNAL LABLMP:NONE GIVENNOMS LEGACY EXTERNAL LABPREV. PAP:NONE [facility] EXTERNAL LABPREV. BX:NONE GIVENNOMS LEGACY EXTERNAL LABSOURCE:None givenN[facility] EXTERNAL LAB STATEMENT OF ADEQUACY:SEE NOTENOMS LEGACY EXTERNAL LABComment: Satisfactory for evaluation. Endocervical/transformation zone component present. INTERPRETATION/RESULT:Negative for intraepithelial lesion or malignancy.[facility] EXTERNAL LABCOMMENT:This Pap test has been evaluated with computer assisted technology.[facility] EXTERNAL LABCYTOTECHNOLOGIST:SEE NOTENOMS LEGACY EXTERNAL LABComment: DMK, CT(ASCP) CT screening location: [place] [address]. REVIEW PRESSER HAND:SEE NOTENOPEACEHEALTH [facility] EXTERNAL LABComment: EMP, CT(ASCP) CT screening location: [facility], [address] [place] [address], [place] [address]. COMMENTSEE [facility] EXTERNAL LABComment: EXPLANATORY NOTE: The Pap is a screening test for cervical cancer. It is not a diagnostic test and is subject to false negative and false positive results. It is most reliable when a satisfactory sample, regularly obtained, is submitted with relevant clinical findings and history, and when the Pap result is evaluated along with historic and current clinical information. HPV MRNA E6/E7Not DetectedNot [facility] EXTERNAL LABComment: This test was performed using the APTIMA HPV Assay ([employer] This assay detects E6/E7 viral messenger RNA (mRNA) from 14 high-risk HPV types (16,18,31,33,35,39,45,51,52,56,58,59,66,68). The analytical performance characteristics of this assay have been determined by [employer]. The modifications have not been cleared or approved by the FDA. This assay has been validated pursuant to the CLIA regulations and is used for clinical purposes. Specimen (Source)Anatomical Location / LateralityCollection Method / Volume Collection TimeReceived Time05/08/2019 Narrative Authorizing ProviderResult TypeResult StatusTaylor Shankar CNSELECT MED[facility], INCW LABSFinal ResultPerforming OrganizationAddressCity/State/ZIP CodePhone Number [facility] from Last 3 Months or Most Recently Relevant to Health Maintenance Insurance Care Teams Team MemberRelationshipSpecialtyStart DateEnd Date Deisy Gomez MD [address] [place] [address] PCP - GeneralFamily Medicine08/10/22
[2025-03-04 02:03] LABS: Hematocrit 41.9 % (36.0-48.0); Hemoglobin 14.4 g/dL (12.0-16.0); Immature Granulocytes Abs Auto 0.08 10^3/uL (0.00-0.03); Immature Granulocytes Pct Auto 0.5 % (0.0-0.5); Lymphocytes Absolute Auto 2.7 10^3/uL (1.2-3.8); Mean Corpuscular HGB Conc 34.4 g/dL (29.9-35.2); Mean Corpuscular Hemoglobin 30.3 pg (26.7-34.0); Mean Corpuscular Volume 88.2 fL (81.0-99.0); Platelet Count 475 10^3/uL (150-450); Red Blood Count 4.75 10^6/uL (4.20-5.40); White Blood Count 16.7 10^3/uL (4.0-11.0)
[2025-03-04] MEDS: DIPHENHYDRAMINE HCL 50 MG/ML VIAL 25 MG IVP (02:03)
[2025-03-04] MEDS: 0.9 % SODIUM CHLORIDE 1,000 ML 1000 ML IV (02:03)
[2025-03-04] MEDS: FAMOTIDINE/PF 20 MG/2 ML VIAL 40 MG IV (02:03)
[2025-03-04] MEDS: METOCLOPRAMIDE HCL 10 MG/2 ML VIAL IVP (02:04)
[2025-03-04] MEDS: HYDROMORPHONE HCL 1 MG/ML CARTRIDGE IV (02:04)
[2025-03-04 02:19] LABS: Alanine Aminotransferase 48 U/L (14-59); Albumin Globulin Ratio 1.3; Albumin Level 4.0 g/dL (3.4-5.0); Alkaline Phosphatase 59 U/L (46-116); Anion Gap 16.0; Aspartate Amino Transferase 40 U/L (15-37); Blood Urea Nitrogen 12.0 mg/dL (7.0-18.0); Calcium 9.5 mg/dL (8.5-10.1); Carbon Dioxide 22.6 mmol/L (21.0-32.0); Chloride 98 mmol/L (98-107); Estimated GFR (African America >60 (>=60 mL/min/1.73m^2); Estimated GFR (Non-African Ame >60 (>=60 mL/min/1.73m^2); Globulin 3.0 g/dL; Glucose 162 mg/dL (74-106); Lipase 23.0 U/L (16.0-77.0); Potassium 3.6 mmol/L (3.5-5.1); Sodium 133 mmol/L (136-145); Total Protein 7.0 g/dL (6.4-8.2)
--- NOTE | 2025-03-04 02:45 | ED_ITS ---
HPI HPI - General Adult General Chief complaint: Nausea/Vomiting/Diarrhea Stated complaint: NAUSEA, VOMITING Time Seen by Provider: 03/04/25 01:35 Source: patient Mode of arrival: Wheelchair History of Present Illness HPI narrative: Patient is a 49-year-old female presenting to the emergency department for evaluation of nausea and vomiting. Patient was seen in the emergency department 2 days ago for the same symptoms. Since her discharge, she was doing well until 2 hours ago when she started experiencing vomiting again. She states she has vomited almost 20 times since the onset of her symptoms. Patient states she restarted Wegovy 1.7 mg subcutaneous injections for appetite suppression just recently. Since starting this medication, she has been experiencing intermittent episodes of nausea and vomiting. She denies any constipation or diarrhea. No fevers or chills. No significant abdominal pain. Related Data Home Medications ?Medication ?Instructions ?Recorded ?Confirmed bupropion HCl 300 mg 24 hr tablet, 300 mg PO DAILY 08/1103/02/25 extended release nitrofurantoin 12/24/22 monohydrate/macrocrystals 100 mg capsule hydroxyzine HCl 25 mg tablet mg 03/02/25 semaglutide (weight loss) 1.7 mg subcut 03/02/25 mg/0.75 mL subcutaneous pen injector (Wegovy) Previous Rx's ?Medication ?Instructions ?Recorded ondansetron 4 mg disintegrating 4 mg translingual Q8H PRN nausea 12/24/22 tablet and vomiting 4 days #12 tabs promethazine 25 mg tablet 25 mg PO TID PRN nausea and 12/24/22 vomiting #9 tabs ondansetron 4 mg disintegrating 4 mg PO Q6H PRN nausea and 03/02/25 tablet vomiting #20 tabs metoclopramide HCl 10 mg tablet 10 mg PO Q6H PRN nause a and 03/04/25 (Reglan) vomiting 7 days #28 tabs Allergies Allergy/AdvReac Type Severity Reaction Status Date / Time metronidazole (From Flagyl) AdvReac Unknown Unknown Verified 03/04/25 01:48 sulfamethoxazole (From AdvReac Unknown Unknown Verified 03/04/25 01:48 Bactrim) Opioid HPI Opioid Management Most Recent Opioid Data: Last Pain Scale 9 03/02/25, 10:56 Last MAR Pain Assessment 03/02/25, 10:56 Review of Systems ROS Status of ROS 10 or more systems reviewed and unremark able except as noted in history and below [facility] PFS Social History Smoking status: Never smoker Little interest or pleasure in doing things: not at all Feeling down, depressed, or hopeless: not at all Exam Narrative Exam Narrative: CONSTITUTIONAL: Patient is continuously retching into a basin. Overall nontoxic and answering questions/following commands appropriately SKIN: Was warm and dry. EYES: Sclerae white. EARS, NOSE, THROAT: Moist oral mucosa. RESPIRATORY: Clear to auscultation bilaterally, no wheezes, crackles, or stridor, no use of accessory muscles CARDIOVASCULAR: Normal rate and regular rhythm. There is no S3, S4, murmur, rub. GASTROINTESTINAL: Abdomen is soft, nontender, and nondistended. No rebound tenderness or guarding. MUSCULOSKELETAL: No peripheral edema. NEUROLOGIC: Patient is awake and alert. Facies were symmetrical. Constitutional Vital Signs, click to edit/add: Last Vital Signs Temp 98.1 F 03/04/25 01:41 Pulse 94 H 03/04/25 01:41 Resp 20 03/04/25 01:41 BP 150/120 H 03/04/25 01:41 Pulse Ox 100 03/04/25 01:41 O2 Del Method Room Air 03/04/25 01:41 Course Vital Signs Vital signs: Vital Signs Temperature 98.1 F 03/04/25 01:41 Pulse Rate 94 H 03/04/25 01:41 Respiratory Rate 20 03/04/25 01:41 Blood Pressure 150/120 H 03/04/25 01:41 Pulse Oximetry 100 03/04/25 01:41 Oxygen Delivery Method Room Air 03/04/25 01:41 Temperature 98.1 F 03/04/25 01:41 Pulse Rate 94 H 03/04/25 01:41 Respiratory Rate 20 03/04/25 01:41 Blood Pressure 150/120 H 03/04/25 01:41 Pulse Oximetry 100 03/04/25 01:41 Oxygen Delivery Method Room Air 03/04/25 01:41 Medical Decision Making [facility] Narrative Medical decision making narrative: Patient is a 49-year-old female presenting to the emergency department the 2- hour history of nausea and vomiting. On review of external documentation, patient was seen here in the emergency department 2 days ago for the same symptoms. She was diagnosed with nausea/vomiting secondary to side effect from Wegovy. She had a CT abdomen/pelvis at that time which was unremarkable. Her vital signs on arrival during this visit were within normal limits. She is afebrile and hemodynamically stable. Examination as noted above. My clinical impression is that the patient's symptoms are secondary to gastroparesis secondary to Wegovy. No history of cannabinoid use to suggest CHS. Patient's exam is not consistent with surgical etiologies of abdominal pain such as appendicitis, cholecystitis, or perforated viscus. IV was established and laboratory studies were obtained. She was given IV Reglan, IV Benadryl, 1 L bolus normal saline for symptomatic treatment. Laboratory studies were unremarkable. No significant electrolyte or metabolic derangement. No evidence of acute kidney injury. Mild leukocytosis, likely reactive from vomiting. No anemia or thrombocytopenia. No transaminitis or hyperbilirubinemia. test negative. Lipase nonelevated. On reevaluation, patient states her symptoms have significantly improved. She is no longer vomiting and appears comfortable. I do believe she stable for di scharge and outpatient follow-up. She was given a prescription for oral Reglan. She was instructed to take this with Benadryl to prevent extrapyramidal side effects. Return precautions were given including any new or concerning symptoms. Patient understands and agrees to the plan. FINAL IMPRESSION: #Acute nausea and vomiting, likely delayed gastric emptying secondary to Wegovy use DISPOSITION: Discharged home CONDITION: Good Lab Data Lab results reviewed: Yes I reviewed the patient's lab results Labs: Lab Results 03/04/25 03/04/25 Range/Units 01:55 02:20 WBC 16.7 H (4.0-11.0) 10^3/uL RBC 4.75 (4.20-5.40) 10^6/uL Hgb 14.4 (12.0-16.0) g/dL Hct 41.9 (36.0-48.0) % MCV 88.2 (81.0-99.0) fL MCH 30.3 (26.7-34.0) pg MCHC 34.4 (29.9-35.2) g/dL RDW 13.1 (11.0-15.0) % Plt Count 475 H (150-450) 10^3/uL MPV 8.7 L (9.5-13.5) fL Neut % (Auto) 74.8 (43.0-75.0) % Lymph % (Auto) 16.4 L (20.5-60.0) % [place] % (Auto) 7.1 (1.7-12.0) % Eos % (Auto) 0.7 L (0.9-7.0) % Baso % (Auto) 0.5 (0.2-2.0) % Neut # (Auto) 12.5 H (1.4-6.5) 10^3/uL Lymph # (Auto) 2.7 (1.2-3.8) 10^3/uL [place] # (Auto) 1.2 H (0.3-0.8) 10^3/uL Eos # (Auto) 0.1 (0.0-0.7) 10^3/uL Baso # (Auto) 0.1 (0.0-0.1) 10^3/uL Abs Immat Gran (auto) 0.08 H (0.00-0.03) 10^3/uL Imm/Tot Granulo (auto) 0.5 (0.0-0.5) % Sodium 133 L (136-145) mmol/L Potassium 3.6 (3.5-5.1) mmol/L Chloride 98 (98-107) mmol/L Carbon Dioxide 22.6 (21.0-32.0) mmol/L Anion Gap 16.0 BUN 12.0 (7.0-18.0) mg/dL Creatinine 0.89 (0.55-1.02) mg/dL Est GFR ( Amer) >60 (>=60 mL/min/1.73m^2) Est GFR (Non-Af Amer) >60 (>=60 mL/min/1.73m^2) BUN/Creatinine Ratio 13.5 Glucose 162 H (74-106) mg/dL Calcium 9.5 (8.5-10.1) mg/dL Total Bilirubin 0.4 (0.2-1.0) mg/dL AST 40 H (15-37) U/L ALT 48 (14-59) U/L Alkaline Phosphatase 59 (46-116) U/L Total Protein 7.0 (6.4-8.2) g/dL Albumin 4.0 (3.4-5.0) g/dL Globulin 3.0 g/dL Albumin/Globulin Ratio 1.3 Lipase 23.0 (16.0-77.0) U/L Serum HCG, Qual Negative (NEGATIVE) Discharge Plan Discharge Chief Complaint: Nausea/Vomiting/Diarrhea Clinical Impression: Drug-induced nausea and vomiting Patient Disposition: Home, Self-Care Time of Disposition Decision: 02:38 Condition: Good Mode of Transportation: Private Vehicle Prescriptions / Home Meds: New metoclopramide HCl [Reglan] 10 mg tablet 10 mg PO Q6H PRN (Reason: nausea and vomiting) 7 Days Qty: 28 0RF No Action bupropion HCl 300 mg tablet extended release 24 hr 300 mg PO DAILY nitrofurantoin monohyd/m-cryst 100 mg capsule ondansetron 4 mg tablet,disintegrating 4 mg translingual Q8H PRN (Reason: nausea and vomiting) 4 Days Qty: 12 0RF promethazine 25 mg tablet 25 mg PO TID PRN (Reason: nausea and vomiting) Qty: 9 0RF hydroxyzine HCl 25 mg tablet Wegovy 1.7 mg/0.75 mL pen injector SUBCUT ondansetron 4 mg tablet,disintegrating 4 mg PO Q6H PRN (Reason: nausea and vomiting) Qty: 20 0RF Print Language: Kyrgyz Instructions: Acute Nausea and Vomiting (ED) Referrals: TIFFANY RIVERA [Primary Care Provider, Family Practice] - 1 week
[2025-03-04 02:58] VITALS: BP 116/81; PULSE 107; O2SAT 97
== END 2025-03-04 04:05 | disposition home or self-care (01) ==
PROVIDERS: Emergency Provider Student in an Organized Health Care Education/Training Program; PCP Family Medicine
DX: R11.2 Nausea with vomiting, unspecified (principal); T50.995A Adverse effect of other drugs, medicaments and biological substances, initial encounter; Z79.85 Long-term (current) use of injectable non-insulin antidiabetic drugs
CPT/HCPCS: 36415; 80053; 83690; 84703; 85025; 96374; 96375; 99284; J1171; J1200; J2765; J3490